=== PATIENT | female | born 1980 ===

== ENCOUNTER → 2018-11-08 21:42 | Outpatient (REF) | payer BC, SELFPAY | LOC: LAB 21:42 | PROVIDERS: Visit Provider Naturopath | DX: B27.90 Infectious mononucleosis, unspecified without complication (principal); R53.83 Other fatigue; D50.9 Iron deficiency anemia, unspecified | CPT/HCPCS: 36415; 82728; 86663; 86664; 86665 ==

== ENCOUNTER → 2018-11-11 23:05 | Outpatient (REF) | payer BC, SELFPAY | LOC: LAB 23:05 | PROVIDERS: Visit Provider Naturopath | DX: B27.90 Infectious mononucleosis, unspecified without complication (principal); E63.9 Nutritional deficiency, unspecified; J06.9 Acute upper respiratory infection, unspecified; R53.83 Other fatigue | CPT/HCPCS: 82955 ==